=== PATIENT | female | born 1985 | race Hispanic/Latino ===

== ENCOUNTER 2017-03-16 20:03 | Emergency (ER) | payer OTHER ==
[~2017-03-16] VITALS: Ht 153.7 cm; Wt 67.7 kg
[~2017-03-16 20:03] MED LIST: HYDR-3583 PO; IBP600T1 PO; PREN1TAB39 PO
[2017-03-16] MEDS ORDERED: diphenhydrAMINE 50 MG/ML INJ (BENADRYL) IM ONE (21:00)
[2017-03-16] MEDS ORDERED: KETOROLAC 60 MG/2 ML VIAL IM ONE (21:00)
[2017-03-16] MEDS ORDERED: PROCHLORPERAZINE 10 MG/2ML INJ (COMPAZINE) IM ONE (21:00)
--- NOTE | 2017-03-16 21:10 | ED Headache ---
General Chief Complaint: Head/Cervical Problems Stated Complaint: HEADACHE Nursing Triage Note: states having madrigal for one year and they are worsening.C/O madrigal since sat. left side radiating to top and back of head. sensitive to light, tired and having dry heaves. Nursing Sepsis Screen: No Definite Risk Source: patient Exam Limitations: no limitations History of Present Illness Time seen by provider: 21:09 Initial Comments To ER with reports of a left-sided frontal and temporal headache for the past year. This is been getting worse over the past few days and has been constant for 3 days. This is associated with photophobia and nausea and vomiting. She has been evaluated at the [facility] here in [place] and given pain medication which she states does not really help. Severity/Quality: moderate Location: frontal, temporal Associated Symptoms: No confusion, No fatigue, No facial pain, No fever/chills , No flushing, nausea/vomiting, No nasal congestion, No nasal drainage, No numbness in legs/feet, No rash, No seizures, No sinus infection, No stiff neck, No vision changes, No weakness Allergies and Home Medications Allergies Coded Allergies: No Known Drug Allergies (Verified , 03/16/17) Home Medications Hydrocodone Bit/Acetaminophen 1 Tab Tab, 1-2 EA PO Q4HR PRN, (Reported) Ibuprofen 600 Mg Tab, 600 MG PO Q 6HRS NEEDED, (Reported) Vits W-Ca,Fe,Fa(<1MG) 1 Each Tablet, 1 EACH PO DAILY, (Reported) Constitutional: see HPI Eyes: No Symptoms Reported Ears, Nose, Mouth, Throat: no symptoms reported Respiratory: no symptoms reported Cardiovascular: no symptoms reported Genitourinary: no symptoms reported Musculoskeletal: no symptoms reported, No neck pain Skin: no symptoms reported Past Anmiptp-Bhgdme-Kgyuys Hx Patient Social History Alcohol Use: Denies Use Recreational Drug Use: No Smoking Status: Never a Smoker 2nd Hand Smoke Exposure: No Recent Foreign Travel: No Contact w/Someone Who Travel: No Recent Infectious Disease Expo: No Recent Hopitalizations: Yes (CHILDBIRTH) Physical Abuse: No Sexual Abuse: No Mistreated: No Fear: No Immunizations Up To Date Tetanus Booster (TDap): Unknown Date of Influenza Vaccine: Jul 21, 2011 Surgeries History of Surgeries: Yes () Respiratory History of Respiratory Disorde: No Cardiovascular History of Cardiac Disorders: No Neurological History of Neurological Disord: No Reproductive System Hx Reproductive Disorders: No Gastrointestinal History of Gastrointestinal Di: No Musculoskeletal History of Musculoskeletal Dis: No Endocrine History of Endocrine Disorders: No Psychosocial History of Psychiatric Problem: No Suicide Risk Score: 0 Blood Transfusions History of Blood Disorders: Yes Physical Exam Vital Signs Vital Sign - Last 12Hours 03/16/17 20:45 Temp 98.1 Pulse 72 Resp 18 B/P (MAP) 134/96 Pulse Ox 99 Capillary Refill : Less Than 3 Seconds General Appearance: WD/WN, no apparent distress HEENT: PERRL/EOMI, normal ENT inspection Neck: non-tender, full range of motion Respiratory: normal breath sounds, no respiratory distress, no accessory muscle use Gastrointestinal: normal bowel sounds, non tender, soft Extremities: normal range of motion, non-tender Psychiatric: alert, oriented x 3 Crainal Nerves: normal hearing, normal speech, PERRL Motor/Sensory: no motor deficit, no sensory deficit Skin: normal color, warm/dry Progress/Results/Core Measures Results/Orders My Orders Orders - JAMSHID MUNOZ APRN Ct Head Wo (03/16/17 20:51) Ketorolac Injection (Toradol Injection) (03/16/17 21:00) Diphenhydramine Injection (Benadryl Inje (03/16/17 21:00) Prochlorperazine Injection (Compazine In (03/16/17 21:00) Medications Given in ED Current Medications Medications Dose Ordered Sig/Brenna Route Start Time Stop Time Status Last Admin Dose Admin Diphenhydramine HCl 25 mg ONCE ONCE IM 03/16/17 21:00 03/16/17 21:01 DC 03/16/17 21:03 25 MG Ketorolac Tromethamine 60 mg ONCE ONCE IM 03/16/17 21:00 03/16/17 21:01 DC 03/16/17 21:04 60 MG Prochlorperazine Edisylate 10 mg ONCE ONCE IM 03/16/17 21:00 03/16/17 21:01 DC 03/16/17 21:04 10 MG Vital Signs/I&O Vital Sign - Last 12Hours 03/16/17 20:45 Temp 98.1 Pulse 72 Resp 18 B/P (MAP) 134/96 Pulse Ox 99 Blood Pressure Mean: 109 Diagnostic Imaging Diagonstic Imaging: CT Comments NAME: WHITAKER-HUINAC,LEW M [facility] REC#: [id number] PT STATUS: REG ER : 1985 PHYSICIAN: JAMSHID MUNOZ APRN ADMIT DATE: 03/16/17/ER Draft Date of Exam:03/16/17 CT HEAD WO PROCEDURE: CT head without contrast. TECHNIQUE: Multiple contiguous axial images were obtained through the brain without the use of intravenous contrast. INDICATION: Headache x 2 weeks. FINDINGS: The ventricles are normal in size, shape and position. There are no masses or hemorrhages. There are no extra-axial fluid collections. IMPRESSION: Negative CT head. Dictated on workstation # [id number] Dict: 03/16/172114 Trans: 03/16/172122 [facility] [id number] Interpreted by: MARGARITA SPENCE Electronically signed by: Departure Communication Progress Notes 2199- patient reports her headache is down to a 6. I did offer to start an IV and give her additional medications to better control this or to send her home and have her follow-up with her doctor to discuss starting a daily medication to prevent headaches. She states she would like to go home and see her regular doctor Impression Impression: Primary Impression: Headache Disposition: 01 HOME, SELF-CARE Condition: Improved Departure-Patient Inst. Decision time for Depature: 21:25 Referrals: PAMELA PARTIDA DO (PCP) Primary Care Physician [facility] (Family) Primary Care Physician Patient Instructions: Headache, Adult (DC) Add. Discharge Instructions: 1. Return to ER for any concerns 2. Follow-up with your doctor next week 3. All discharge instructions reviewed with patient and/or family. Voiced understanding. JAMSHID MUNOZ APRN Mar 16, 2017 21:10
--- NOTE | 2017-03-16 21:23 | Diagnostic Imaging Report ---
PROCEDURE: CT head without contrast. TECHNIQUE: Multiple contiguous axial images were obtained through the brain without the use of intravenous contrast. INDICATION: Headache x 2 weeks. FINDINGS: The ventricles are normal in size, shape and position. There are no masses or hemorrhages. There are no extra-axial fluid collections. IMPRESSION: Negative CT head. Dictated by: Dictated on workstation # [id number]
[2017-03-16 22:17] VITALS: BP 142/71
== END 2017-03-16 22:10 | disposition home or self-care (01) ==
LOC: EDUNIT# 20:03 → ER 20:05
DX: R51 Headache (principal); H53.143 Visual discomfort, bilateral; R11.2 Nausea with vomiting, unspecified
CPT/HCPCS: 70450; 96372; 99284

== ENCOUNTER → 2018-05-18 | Outpatient (CLI) | payer OTHER ==
--- NOTE | 2018-05-18 17:00 | Diagnostic Imaging Report ---
PROCEDURE: CT head without contrast. TECHNIQUE: Multiple contiguous axial images were obtained through the brain without the use of intravenous contrast. INDICATION: Left facial pain and paresthesia Comparison is made study of 03/16/2017. FINDINGS: Ventricles and sulci are within normal limits for size. There is no intracranial hemorrhage identified. There is no abnormal mass effect or shift of midline structures. IMPRESSION: Unremarkable CT of the head. Dictated by: Dictated on workstation # [id number]
== END ==
LOC: RAD 14:54
PROVIDERS: ATTEND Nurse Practitioner
DX: R20.0 Anesthesia of skin (principal); R51 Headache
CPT/HCPCS: 70450